=== PATIENT | female | born 1930 | race Caucasian/White ===

== ENCOUNTER → 2016-09-09 | Outpatient (CLI) | payer OTHER ==
[~2016-09-09] MED LIST: ASPI325T4 PO; DOXY50CA PO; GLUCTAB7 PO; MULT-188 PO
[2016-09-09 12:56] LABS: ALT/SGPT 46 U/L (12-78); BLOOD UREA NITROGEN 18 mg/dl (7-18); BUN/CREATININE RATIO 19.3 (10-20); CALCIUM 9.1 mg/dl (8.5-10.1); CARBON DIOXIDE 28 mmol/L (21-32); CHLORIDE 103 mmol/L (98-107); CREATININE 0.95 mg/dl (0.60-1.20); GLUCOSE 136 mg/dl (70-99); POTASSIUM 3.7 mmol/L (3.5-5.1); SODIUM 142 mmol/L (136-145)
[2016-09-09 12:59] LABS: ALB/GLOB RATIO 0.5 (0.9-2); ALKALINE PHOSPHATASE 151 U/L (45-117); AST/SGOT 33 U/L (15-37)
== END | disposition home or self-care (01) ==
LOC: C.LAB 10:43
PROVIDERS: ATTEND Family Medicine
DX: R19.00 Intra-abdominal and pelvic swelling, mass and lump, unspecified site (principal)

== ENCOUNTER → 2016-09-13 | Outpatient (CLI) | payer OTHER ==
[~2016-09-13] MED LIST changes: +OPTIRAY 320 IV PRN
--- NOTE | 2016-09-13 13:55 | DIAGNOSTIC IMAGING REPORT ---
ABDOMEN AND PELVIS CT EXAMINATION PRE AND POST INTRAVENOUS CONTRAST CT DOSE: 970.21 mGycm HISTORY: Mass R19.00 Abdominal swelling, mass, or lump TECHNIQUE: Multiaxial CT images of the abdomen and pelvis were performed pre and post intravenous contrast enhancement. COMPARISON STUDY: 01/28/2015, 07/24/2013. FINDINGS: Interval development of a large partially necrotic and/or septated mass of the right upper quadrant. This measures approximately 13 x 12 cm.. 3. Partial invasion or involvement of the left hepatic lobe. The gallbladder is displaced slightly posteriorly. Right kidney is negative for hydronephrosis. Left kidney is atrophied. Moderate carcinomatosis is also present with a trace amount of ascites. Bowel pattern overall appears to be nonobstructive. The gastric antrum and body are displaced into left lateral and posterior lateral direction. Differentiation of the anterior wall of the stomach and duodenum are difficult to separate from the mass raises the possibility of gastric carcinoma. Neoplasm potentially arising from the colon is also a consideration. Findings of septation septations and/or adenomyomatosis of the gallbladder fundus potentially indicate a gallbladder origin although the gallbladder was not active on prior PET scans. The adrenal glands are unremarkable. Pancreas is displaced posteriorly. No definite pancreatic involvement is identified. Bladder remains midline. There has been bladder suspension procedure. There is trace amount of free fluid within the pelvic cul-de-sac. IMPRESSION: 1. Interval development of a large septated and/or complex mass of the right upper quadrant appearing to involve the liver, components of the fundal aspect of the gallbladder, as well as components of the distal stomach. 2. Moderate carcinomatosis. 3. Differential considerations include neoplasm from a hepatic, colonic, versus gallbladder wall or distal gastric location. All localized structures of the right upper quadrant are involved 4. Neoplastic processes diagnosis of exclusion. A walled off abscess is a secondary unlikely possibility. Electronically signed by: Brian Vilchis M.D. 09/13/2016 1:53 PM Dictated Date/Time: 09/13/2016 1:31 PM
== END | disposition home or self-care (01) ==
LOC: C.CTS 13:02
PROVIDERS: ATTEND Family Medicine
DX: R19.01 Right upper quadrant abdominal swelling, mass and lump (principal); C80.0 Disseminated malignant neoplasm, unspecified

== ENCOUNTER → 2016-09-22 | Outpatient (CLI) | payer OTHER ==
[~2016-09-22] MED LIST changes: -OPTIRAY 320 IV PRN
[2016-09-22 12:18] LABS: HEMATOCRIT 35.1 % (37-47); MEAN CELL VOLUME 86.9 fL (80-100); MEAN CORPUSCULAR HGB CONC 32.2 g/dl (32-36); MEAN PLATELET VOLUME 9.3 fL (7.4-10.4); PLATELET COUNT 358 K/uL (130-400); RED BLOOD COUNT 4.04 M/uL (4.2-5.4); WHITE BLOOD COUNT 16.09 K/uL (4.8-10.8)
[2016-09-22 12:40] LABS: BASO % 0.1 %; BASO ABS # 0.02 K/uL (0-0.2); COMPLETE YES; EOS % 1.4 %; IG% 0.3 %; LYMPH % 14.6 %; LYMPH ABS # 2.35 K/uL (1.2-3.4); MONO % 8.5 %; NEUT % 75.1 %
[2016-09-22 13:03] LABS: ALT/SGPT 30 U/L (12-78); AST/SGOT 30 U/L (15-37); BLOOD UREA NITROGEN 18 mg/dl (7-18); BUN/CREATININE RATIO 19.2 (10-20); CALCIUM 9.1 mg/dl (8.5-10.1); CARBON DIOXIDE 31 mmol/L (21-32); CHLORIDE 106 mmol/L (98-107); CREATININE 0.93 mg/dl (0.60-1.20); GLUCOSE 101 mg/dl (70-99); POTASSIUM 4.1 mmol/L (3.5-5.1); SODIUM 141 mmol/L (136-145)
[2016-09-22 13:05] LABS: ALB/GLOB RATIO 0.5 (0.9-2); ALKALINE PHOSPHATASE 113 U/L (45-117)
== END | disposition home or self-care (01) ==
LOC: C.LAB 11:10
PROVIDERS: ATTEND Family Medicine
DX: R19.01 Right upper quadrant abdominal swelling, mass and lump (principal); R93.5 Abnormal findings on diagnostic imaging of other abdominal regions, including retroperitoneum; R11.2 Nausea with vomiting, unspecified; R14.0 Abdominal distension (gaseous)